=== PATIENT | female | born 1980 | race Caucasian/White ===

== ENCOUNTER 2018-12-28 06:07 | Day surgery (SDC) | payer BC ==
[~2018-12-28] VITALS: Ht 167.6 cm; Wt 116.1 kg
[2018-12-28] MEDS ORDERED: CEFAZOLIN SOD 1 GM in D5W 50 ML IV ONE (07:00)
[2018-12-28] MEDS ORDERED: ONDANSETRON HCL 4 MG/2 ML VIAL ONE (07:54)
[2018-12-28] MEDS ORDERED: ONDANSETRON HCL 4 MG/2 ML VIAL IVP ONE (08:15)
[2018-12-28] MEDS ORDERED: ROCURONIUM BROMIDE 10 MG/ML (ZEMURON) IV ONE (08:30)
[2018-12-28] MEDS ORDERED: LR 1,000 ML IV.SOLN IV ONE (08:30)
[2018-12-28] MEDS ORDERED: MIDAZOLAM HCL 5 MG/5 ML VIAL IVP ONE (08:30)
[2018-12-28] MEDS ORDERED: METOCLOPRAMIDE HCL 10 MG/2 ML VIAL IVP ONE (08:30)
[2018-12-28] MEDS ORDERED: KETOROLAC TROMETHAMINE 30 MG VIAL IVP ONE (08:30)
[2018-12-28] MEDS ORDERED: DEXAMETHASONE SOD PHOSPHATE 4 MG/ML VIAL IVP ONE (08:30)
[2018-12-28] MEDS ORDERED: BUPIVACAINE /EPINEPHRINE/PF 0.25% 30 ML VIAL INJ ONE (08:30)
[2018-12-28] MEDS ORDERED: fentaNYL CITRATE/PF 100 MCG/2 ML AMP IVP ONE (08:30)
[2018-12-28] MEDS ORDERED: SEVOFLURANE 15 MIN GAS INH ONE (08:30)
[2018-12-28] MEDS ORDERED: NS IRRIG SOLN 1000 ML IR ONE (08:30)
[2018-12-28] MEDS ORDERED: PROPOFOL 200MG/ 20ML VIAL (DIPRIVAN) IV ONE (08:30)
[2018-12-28] MEDS ORDERED: fentaNYL CITRATE/PF 100 MCG/2 ML AMP IVP PRN ×2 (09:30)
[2018-12-28] MEDS ORDERED: KETOROLAC TROMETHAMINE 30 MG VIAL IVP PRN (09:30)
[2018-12-28] MEDS ORDERED: ONDANSETRON HCL 4 MG/2 ML VIAL IVP PRN (09:30)
[2018-12-28] MEDS ORDERED: HYDROcodone/ACETAMIN 5-325 MG TAB (NORCO/ VICODIN) PO PRN (10:00)
[2018-12-28] MEDS ORDERED: fentaNYL CITRATE/PF 100 MCG/2 ML AMP ONE (10:59)
[2018-12-28] MEDS ORDERED: HYDROcodone/ACETAMIN 5-325 MG TAB (NORCO/ VICODIN) ONE (11:33)
[2018-12-28 12:15] VITALS: BP_SYST 118
[2018-12-28] MEDS ORDERED: ONDANSETRON HCL 4 MG/2 ML VIAL IM PRN (12:30)
[2018-12-28] MEDS ORDERED: OXYCODONE/ACETAMINOPHEN 5-325 TABLET PO PRN ×2 (12:30)
== END 2018-12-28 12:40 | disposition home or self-care (01) ==
LOC: SMU 06:07 → SDS 06:07
PROVIDERS: ATTEND Specialist
DX: N92.6 Irregular menstruation, unspecified (principal); M79.7 Fibromyalgia; F32.9 Major depressive disorder, single episode, unspecified; F41.9 Anxiety disorder, unspecified; N85.2 Hypertrophy of uterus; R14.0 Abdominal distension (gaseous); E66.01 Morbid (severe) obesity due to excess calories; G43.909 Migraine, unspecified, not intractable, without status migrainosus; Z91.040 Latex allergy status; Z79.899 Other long term (current) drug therapy
CPT/HCPCS: 49329; C1727; J0690; J1100; J1885; J2250; J2405; J2704; J2765; J3010; J3490; J7060; J7120

== ENCOUNTER 2019-04-05 09:24 | Day surgery (SDC) | payer BC ==
[~2019-04-05] VITALS: Ht 167.6 cm; Wt 116.1 kg
[~2019-04-05 09:24] MED LIST: CEFAZOLIN SOD 2 GM in D5W 50 ML IV ONE
[2019-04-05] MEDS ORDERED: PROPOFOL 200MG/ 20ML VIAL (DIPRIVAN) IV ONE (12:45)
[2019-04-05] MEDS ORDERED: BUPIVACAINE /PF 0.5% 30 ML VIAL INJ ONE (12:45)
[2019-04-05] MEDS ORDERED: SEVOFLURANE 15 MIN GAS INH ONE (12:45)
[2019-04-05] MEDS ORDERED: ROCURONIUM BROMIDE 10 MG/ML (ZEMURON) IV ONE (12:45)
[2019-04-05] MEDS ORDERED: WATER FOR IRRIGATION,STERILE 1,000 ML IRRIG.SOLN IR ONE (12:45)
[2019-04-05] MEDS ORDERED: ROPIVACAINE HCL/PF 0.2% EPIDURAL 200 ML PLAST..BAG EP ONE (12:45)
[2019-04-05] MEDS ORDERED: GLYCOPYRROLATE 0.2 MG/ML VIAL IJ ONE (12:45)
[2019-04-05] MEDS ORDERED: ONDANSETRON HCL 4 MG/2 ML VIAL IVP ONE (12:45)
[2019-04-05] MEDS ORDERED: ROPIVACAINE HCL/PF 5 MG/ML 0.5% 30 ML VIAL INJ ONE (12:45)
[2019-04-05] MEDS ORDERED: LR 1,000 ML IV.SOLN IV ONE (12:45)
[2019-04-05] MEDS ORDERED: fentaNYL CITRATE 250 MCG/5 ML AMP IV ONE (12:45)
[2019-04-05] MEDS ORDERED: NS IRRIG SOLN 1000 ML IR ONE (12:45)
[2019-04-05] MEDS ORDERED: NEOSTIGMINE METHYLSULFATE 1 MG/ML, 10 ML VIAL IVP ONE (12:45)
[2019-04-05] MEDS ORDERED: MIDAZOLAM HCL 5 MG/5 ML VIAL IVP ONE (12:45)
[2019-04-05] MEDS ORDERED: HYDROcodone/ACETAMIN 5-325 MG TAB (NORCO/ VICODIN) PO PRN (15:00)
[2019-04-05] MEDS ORDERED: OXYCODONE/ACETAMINOPHEN 5-325 TABLET PO PRN ×2 (15:00)
[2019-04-05] MEDS ORDERED: ONDANSETRON HCL 4 MG/2 ML VIAL IVP PRN (15:00)
[2019-04-05] MEDS ORDERED: LR 1,000 ML IV SCH ×2 (15:44→15:45)
[2019-04-05] MEDS ORDERED: MORPHINE 4 MG/ML INJ. SYRINGE IVP PRN ×6 (15:45)
[2019-04-05] MEDS ORDERED: METOCLOPRAMIDE HCL 10 MG/2 ML VIAL IVP PRN (15:45)
[2019-04-05] MEDS: METOCLOPRAMIDE HCL 10 MG/2 ML VIAL IVP PRN ×2 (15:49→16:19)
[2019-04-05] MEDS ORDERED: METOCLOPRAMIDE HCL 10 MG/2 ML VIAL ONE (15:59)
[2019-04-05] MEDS ORDERED: MORPHINE 4 MG/ML INJ. SYRINGE ONE (16:44)
[2019-04-05 17:10] VITALS: BP_SYST 126
== END 2019-04-05 18:55 | disposition home or self-care (01) ==
LOC: SMU 09:24 → SDS 09:24
PROVIDERS: ATTEND Specialist
DX: R10.2 Pelvic and perineal pain (principal); D25.2 Subserosal leiomyoma of uterus; N83.02 Follicular cyst of left ovary; N83.8 Other noninflammatory disorders of ovary, fallopian tube and broad ligament; N80.9 Endometriosis, unspecified; N93.8 Other specified abnormal uterine and vaginal bleeding; N73.6 Female pelvic peritoneal adhesions (postinfective); N92.6 Irregular menstruation, unspecified; N93.9 Abnormal uterine and vaginal bleeding, unspecified; E66.01 Morbid (severe) obesity due to excess calories; K21.9 Gastro-esophageal reflux disease without esophagitis; G89.29 Other chronic pain; Z91.040 Latex allergy status; Z79.899 Other long term (current) drug therapy
CPT/HCPCS: 58552; 64488; 88307; C1727; J0690; J2250; J2270; J2405; J2704; J2710; J2765; J3010; J3490 ×2; J7060; J7120; E0190

== ENCOUNTER 2019-10-25 11:09 | Day surgery (SDC) | payer BC, SELFPAY ==
[~2019-10-25] VITALS: Ht 167.6 cm; Wt 108.9 kg
[2019-10-25] MEDS ORDERED: ROCURONIUM BROMIDE 10 MG/ML (ZEMURON) ONE ×2 (14:59→16:08)
[2019-10-25] MEDS ORDERED: METOCLOPRAMIDE HCL 10 MG/2 ML VIAL IVP PRN (15:45)
[2019-10-25] MEDS ORDERED: ONDANSETRON HCL 4 MG/2 ML VIAL IVP PRN (16:00)
[2019-10-25] MEDS ORDERED: OXYCODONE/ACETAMINOPHEN 5-325 TABLET PO PRN ×2 (16:00)
[2019-10-25] MEDS ORDERED: HYDROcodone/ACETAMIN 5-325 MG TAB (NORCO/ VICODIN) PO PRN (16:00)
[2019-10-25] MEDS ORDERED: SEVOFLURANE 15 MIN GAS INH ONE (16:08)
[2019-10-25] MEDS ORDERED: LR 1,000 ML IV.SOLN IV ONE (16:08)
[2019-10-25] MEDS ORDERED: PROPOFOL 200MG/ 20ML VIAL (DIPRIVAN) IV ONE (16:08)
[2019-10-25] MEDS ORDERED: BUPIVACAINE /EPINEPHRINE/PF 0.25% 30 ML VIAL INJ ONE (16:08)
[2019-10-25] MEDS ORDERED: NS 1000 ML IV.SOLN IV ONE (16:08)
[2019-10-25] MEDS ORDERED: fentaNYL CITRATE/PF 100 MCG/2 ML AMP ONE (16:08)
[2019-10-25] MEDS ORDERED: NS IRRIG SOLN 1000 ML IR ONE (16:08)
[2019-10-25] MEDS ORDERED: SUCCINYLCHOLINE CHLORIDE 20 MG/ML(QUELICIN) ONE (16:08)
[2019-10-25] MEDS ORDERED: ONDANSETRON HCL 4 MG/2 ML VIAL ONE (16:08)
[2019-10-25] MEDS: HYDROmorphone 1 MG INJ. 1 MG/ML AMPUL IVP PRN ×2 (16:15→16:25)
[2019-10-25] MEDS ORDERED: HYDROmorphone 1 MG INJ. 1 MG/ML AMPUL ONE (16:35)
[2019-10-25] MEDS ORDERED: KETOROLAC TROMETHAMINE 30 MG VIAL IVP ONE (17:00)
[2019-10-25 18:26] VITALS: BP_SYST 138
== END 2019-10-25 18:20 | disposition home or self-care (01) ==
LOC: SDS 11:09 → SMU 11:10 → SDS 18:20
PROVIDERS: ATTEND Specialist
DX: N83.201 Unspecified ovarian cyst, right side (principal); Z11.59 Encounter for screening for other viral diseases; F41.9 Anxiety disorder, unspecified; E66.01 Morbid (severe) obesity due to excess calories; Z91.040 Latex allergy status; Z88.8 Allergy status to other drugs, medicaments and biological substances; N80.9 Endometriosis, unspecified; R39.89 Other symptoms and signs involving the genitourinary system
CPT/HCPCS: 58661; 88305; C1727; J0330; J0690; J1170; J2405; J2704; J3010; J3490; J7030; J7042; J7060; J7120; U0003

== ENCOUNTER 2019-10-29 18:28 | Emergency (ER) | payer BC, SELFPAY ==
[~2019-10-29] VITALS: Ht 167.6 cm; Wt 113.4 kg
[2019-10-29 18:35] VITALS: BP_SYST 162
[2019-10-29] MEDS ORDERED: NACL 0.9% 1,000 ML IV ONE (18:37)
[2019-10-29] MEDS ORDERED: MORPHINE 4 MG/ML INJ. SYRINGE IVP ONE (18:45)
[2019-10-29] MEDS ORDERED: ONDANSETRON HCL 4 MG/2 ML VIAL IVP ONE (18:45)
--- NOTE | 2019-10-29 18:45 | NUR ---
Patient to ER bed 7 to gown for evaluation. Side rails up. Report given to Erica MARIO.
--- NOTE | 2019-10-29 19:12 | NUR ---
Patient came from home. C/O lower back pain x today. Patient states "had lower back pain today, took motrin, ultram and smoke marijuanas , no relief. " Sx Oophorectomy A/O,X4, lower back pain, pain rate 8/10, no radiate, place patient on [facility] services.
--- NOTE | 2019-10-29 19:20 | NUR ---
# 20 gauge angiocath placed to LAC. Use of asceptic technique. Opsite placed over site. Blood return noted. Blood for lab drawn from site. Flushed with 10 cc of normal saline. No evidence of infiltration noted. Patient tolerated well.
--- NOTE | 2019-10-29 19:28 | NUR ---
X-ray at bedside.
--- NOTE | 2019-10-29 19:30 | NUR ---
Patient transported to radiology via wheelchair, accompanied by interventional radiology tech.
[2019-10-29 19:41] LABS: BILIRUBIN,URINE NEGATIVE (NEGATIVE); CLARITY/URINE CLEAR (CLEAR); COLOR,URINE YELLOW (YELLOW); GLUCOSE,URINE NEGATIVE (NEGATIVE); KETONES,URINE NEGATIVE (NEGATIVE); LEUKOCYTE ESTERASE ,URINE NEGATIVE (NEGATIVE); NITRITE, URINE NEGATIVE (NEGATIVE); PROTEIN URINE NEGATIVE (NEGATIVE); UROBILINOGEN,URINE 0.2 (0.2-1.0)
[2019-10-29 19:50] LABS: BASOPHILS # (AUTO) 0.1 K/uL (0.0-0.2); BASOPHILS % (AUTO) 0.8 % (0.0-2.0); EOSINOPHILS # (AUTO) 0.4 K/uL (0.0-0.4); EOSINOPHILS % (AUTO) 3.3 % (0.0-4.0); HEMATOCRIT 37.9 % (36-48); HEMOGLOBIN 12.6 g/dL (12.0-16.0); LYMPHOCYTES # (AUTO) 2.4 K/uL (1.0-5.5); LYMPHOCYTES % (AUTO) 18.8 % (20.5-51.5); MEAN CORPUSCULAR HEMOGLOBIN 29 pg (27-31); MEAN CORPUSCULAR HGB CONC 33 % (32-36); MEAN CORPUSCULAR VOLUME 86 fL (79.0-98.0); MONOCYTES # (AUTO) 0.5 K/uL (0.0-1.0); MONOCYTES % (AUTO) 3.8 % (1.7-9.3); NEUTROPHILS # (AUTO) 9.5 K/uL (1.8-7.7); NEUTROPHILS % (AUTO) 73.3 % (40.0-70.0); PLATELET COUNT (AUTO) 341 K/uL (130-430); RED CELL DISTRIBUTION WIDTH 13.7 % (9.0-15.0)
[2019-10-29 19:51] LABS: BLOOD, URINE TRACE (NEGATIVE)
--- NOTE | 2019-10-29 19:54 | NUR ---
ER at bedside examining patient.
--- NOTE | 2019-10-29 19:55 | NUR ---
IV LAC - D/C by patient came off by accident. # 22 gauge angiocath placed to RAC. Use of asceptic technique. Opsite placed over site. Blood return noted. Blood for lab drawn from site. Flushed with 10 cc of normal saline. No evidence of infiltration noted. Patient tolerated well.
[2019-10-29 20:03] LABS: CALCIUM 9.5 mg/dL (8.4-11.0); CREATININE 0.82 mg/dL (0.55-1.30); POTASSIUM 3.7 mmol/L (3.5-5.1)
[2019-10-29 20:08] LABS: ALBUMIN 3.7 g/dL (3.4-4.8); TOTAL BILIRUBIN 0.7 mg/dL (0.0-1.0)
[2019-10-29 20:09] LABS: INR 0.9 (0.8-1.2); PROTHROMBIN TIME 9.5 SECS (9.5-12.5)
[2019-10-29 22:14] VITALS: BP_SYST 145
--- NOTE | 2019-10-29 22:14 | NUR ---
Patient given written and verbal discharge instructions and verbalizes understanding. ER MD discussed with patient the results and treatment provided. Patient in stable condition. ID arm band removed. IV catheter removed intact and dressing applied, no active bleeding. Rx of Zofran and Tramadol given. Patient educated on pain management and to follow up with PMD. Pain Scale 3/10. Opportunity for questions provided and answered. Medication side effect fact sheet provided.
== END 2019-10-29 22:14 | disposition home or self-care (01) ==
LOC: SED 18:28
DX: R10.2 Pelvic and perineal pain (principal); F12.90 Cannabis use, unspecified, uncomplicated; Z91.040 Latex allergy status; Z88.8 Allergy status to other drugs, medicaments and biological substances
CPT/HCPCS: 36415; 71045; 74176; 80053; 81003; 82150; 83605; 83690; 84484; 85025; 85610; 85730; 87040; 93005; 96374; 96375; 99285; J2270; J2405; J7030